=== PATIENT | female | born 1995 | race Caucasian/White ===

== ENCOUNTER 2022-10-15 14:27 | Outpatient (CLI) | payer BC ==
[2022-10-15 15:34] VITALS: BP 126/64; PULSE 100; RESP 18; TEMP 97.7
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
== END 2022-10-15 15:24 | disposition home or self-care (01) ==
LOC: FBPOP 14:27
PROVIDERS: ATTEND Obstetrics & Gynecology
DX: O9A.212 Injury, poisoning and certain other consequences of external causes complicating pregnancy, second trimester (principal); Z3A.26 26 weeks gestation of pregnancy
CPT/HCPCS: 99213

== ENCOUNTER 2023-01-10 07:08 | Outpatient (CLI) | payer BC, OTHER ==
[2023-01-10 07:51] VITALS: BP 115/69; PULSE 80; RESP 15; TEMP 97.6
--- NOTE | 2023-01-15 18:07 | P.MSEPDOC ---
Presenting Problems - Arrival Data Date of Arrival on Unit: 01/10/23 Time of Arrival on Unit: 07:08 Mode of Transport: Ambulatory - Complaint OB-Reason for Admission/Chief Complaint: Rule Out SROM Medical History - Information : 1 Para: 0 Term: 0 : 0 Abortions: Spontaneous or Elective: 0 Number of Living Children: 0 - Gestational Age Gestational Age by WYATT (wks/days): 39 Weeks and 2 Days Review of Systems - Review of Systems Constitutional: No problems Breast: No problems ENT: No problems Cardiovascular: No problems Respiratory: No problems Gastrointestinal: No problems Genitourinary: No problems Musculoskeletal: No problems Neurological: No problems Skin: No problems Vital Signs - Temperature Temperature: 97.6 F Temperature Source: Temporal Artery Scan - Pulse Right Pulse Rate: 80 Pulse Assessment Method: Automatic Cuff - Respirations Respiratory Rate: 15 Oxygen Delivery Method: Room Air O2 Sat by Pulse Oximetry: 97 - Blood Pressure Right Arm Sitting Blood Pressure: 115/69 Blood Pressure Mean: 84 Blood Pressure Source: Automatic Cuff Medical Screen Scoring - Cervical Exam Dilation (cm): 1 Effacement (%): 0 Station: -3 Membranes: Intact - Uterine Contractions Frequency From (mins): 3 Frequency To (mins): 5 Duration From (seconds): 60 Duration To (seconds): 70 Intensity: Mild Resting: Soft to palpation - Assessment - Baby A Baseline FHR: 130 Heart Rate - NICHD Category: Category I (Normal) NST: Reactive Physician Notification - Physician Notified Physician Notified Date: 01/10/23 Physician Notified Time: 07:42 Physician: Cally Gold New Order Received: Yes - Notification Comment Comment: d/c with instruction Maternal Triage Index - Non-Urgent/Priority 4 Non-Urgent Priority 4: Yes Criteria Met for Priority 4: 39.2 rule out rupture Disposition - Disposition OB Disposition: Triage, Discharge to home Discharge Date: 01/10/23 Discharge Time: 07:50 I agree with the RN Medical Screening Exam: Yes Case reviewed; plan agreed upon as documented in EMR&OBIX.: Yes Diagnosis: FALSE LABOR AT OR AFTER 37 COMPLETED WEEKS OF GESTATION
== END 2023-01-10 07:55 | disposition home or self-care (01) ==
LOC: FBPOP 07:08
PROVIDERS: ATTEND Obstetrics & Gynecology Obstetrics
DX: O47.1 False labor at or after 37 completed weeks of gestation (principal); Z3A.39 39 weeks gestation of pregnancy; Z79.82 Long term (current) use of aspirin
CPT/HCPCS: 59025; 84112; 99213

== ENCOUNTER 2023-01-12 00:54 | Inpatient (IN) | payer OTHER ==
[2023-01-12] MEDS ORDERED: LIDOCAINE 0.5% (PF) 5 MG/ML (50 ML SDV) SQ PRN (01:30)
[2023-01-12] MEDS ORDERED: OXYTOCIN 10 UNIT/ML 1 ML VIAL IM PRN (01:30)
[2023-01-12] MEDS ORDERED: miSOPROStoL 200 MCG TAB PO PRN (01:30)
[2023-01-12] MEDS ORDERED: METHYLERGONOVINE 0.2 MG/ML 1 ML AMP IM PRN (01:30)
[2023-01-12] MEDS ORDERED: TRANEXAMIC ACID IN NACL,ISO-OS 1,000 MG in EMPTY BAG 1 BAG IV PRN (01:30)
[2023-01-12] MEDS ORDERED: TERBUTALINE 1 MG/ML VIAL SQ PRN (01:30)
[2023-01-12] MEDS ORDERED: CARBOPROST TROMETHAMINE 250 MCG/ML 1 ML AMP IM PRN (01:30)
[2023-01-12 02:42] VITALS: RESP 16
[2023-01-12] MEDS: OXYTOCIN 30 UNITS/500 ML NS 30 UNIT in SALINE 1 500ML.BAG IV SCH ×2 (02:52→20:35)
[2023-01-12] MEDS: LACTATED RINGERS 1,000 ML IV SCH ×5 (02:53→20:35)
[2023-01-12 03:07] LABS: Basophils % (A) 0 %; Eosinophils # (A) 0.1 k/uL (0-0.7); Eosinophils % (A) 1 %; HGB 12.6 gm/dL (11.4-16.0); Lymphocytes # (A) 1.4 k/uL (1.0-4.8); Lymphocytes % (A) 15 %; MCH 30.9 pg (25.0-35.0); MCHC 33.2 g/dL (31.0-37.0); MCV 92.9 fL (80.0-100.0); Mean Platelet Volume 9.6; Monocytes # (A) 0.4 k/uL (0-1.0); Monocytes % (A) 5 %; Neutrophils # (A) 6.9 k/uL (1.3-7.7); Neutrophils % (A) 78 %; Platelet Count 229 k/uL (150-450); RBC 4.09 m/uL (3.80-5.40); RDW 11.9 % (11.5-15.5); WBC 8.8 k/uL (3.8-10.6)
--- NOTE | 2023-01-12 07:04 | P.HPOB ---
History of Present Illness H&P Date: 01/12/23 Chief Complaint: rupture of membranes Ms. Prince is a 27 year old at 39 weeks and 4 days (with EDC of 01/15/23 by LMP c/w 8 wk US) who presents to labor and delivery with contractions and suspected leakage of amniotic fluid. Due to a maternal history of PFO, the patient was seen by MFM. Maternal and ECHOs done during the were within normal limits. No special recommendations were made for delivery. has otherwise been uncomplicated. Maternal serologies: blood type A positive, antibody negative, rubella immune, VDRL non-reactive, HBsAg negative, HIV negative, 1 hour GTT 121, Group B strep negative Past Medical History Past Medical History: No Reported History Additional Past Medical History / Comment(s): PFO History of Any Multi-Drug Resistant Organisms: None Reported Past Surgical History: No Surgical Hx Reported Past Anesthesia/Blood Transfusion Reactions: No Reported Reaction Past Psychological History: Anxiety Smoking Status: Never smoker Past Alcohol Use History: None Reported Past Drug Use History: None Reported Medications and Allergies Home Medications Medication Instructions Recorded Confirmed Type Aspirin [Adult Low Dose Aspirin EC] 81 mg PO DAILY 10/15/22 01/12/23 History Vit No.179/Iron/Folic 1 each PO DAILY 10/15/22 01/12/23 History [ Tablet] Allergies Allergy/AdvReac Type Severity Reaction Status Date / Time No Known Allergies Allergy Verified 01/12/23 01:28 Exam Vital Signs Temp Pulse Resp BP Pulse Ox 01/12/23 04:31 97.8 F 93 16 114/68 97 01/12/23 01:28 97.8 F 93 16 114/68 97 Intake and Output 01/11/23 01/11/23 01/12/23 14:59 22:59 06:59 Other: # Voids 2 Weight 74.843 kg Focused physical exam is performed. This is a healthy-appearing breathing through contractions. Cervical exam is 2/80/-2. heart tones are Category I. Results Result Diagrams: 01/12/23 02:10 Assessment and Plan Assessment: 27 year old at 39 weeks and 4 days with SROM in early labor Plan: Admit, NPO, mIVF, oxytocin per protocol, continuous EFM, epidural prn. Time with Patient: Less than 30 (10 minutes)
--- NOTE | 2023-01-12 19:26 | P.PROBDLV ---
Vaginal Delivery Note - . Vaginal Delivery Note: DATE OF SERVICE: 01/12/2023 PROCEDURE: Normal Vaginal Delivery ATTENDING: Dr. Layne Martinez MD ESTIMATED BLOOD LOSS: 500 mL FINDINGS: VFI, Apgars 8/9, weight 7# 9 oz PROCEDURE: Patient was a 27 y/o at 39 weeks and 4 day who presented to labor and delivery after spontaneous rupture of membranes at 1999 on 01/11. Oxytocin was started to augment labor. The patient progressed to complete dilation. She pushed the head effectively. Head delivered without difficulty followed by shoulders and body over intact perineum. placed on maternal abdomen and bulb suctioned. Cord was clamped and cut after a 30 second delay. Umbilical cord avulsed fromt the placenta.Placenta extracted manually. Oxytocin was started to facilitate uterine tone. Uterine fundus was atonic on exam and bleeding was brisk. Decision was made to give 0.2 of IM Methergine. After this, the uterine fundus became very firm and bleeding was minimal. Perineal inspection revealed a first degree laceration repaired with 3-0 Vicryl in a running fashion. Bladder drained after repair for approximately 50 cc of urine. Patient stable .
[2023-01-12] MEDS ORDERED: diphenhydrAMINE 50 MG/ML 1 ML VIAL IVP PRN ×2 (20:13)
[2023-01-12] MEDS ORDERED: ZOLPIDEM 5 MG TAB PO PRN (20:13)
[2023-01-12] MEDS ORDERED: BENZOCAINE/MENTHOL SPRAY 1 GM/SPRAY AEROSOL TOPICAL PRN (20:13)
[2023-01-12] MEDS ORDERED: SIMETHICONE 80 MG CHEWABLE PO PRN (20:13)
[2023-01-12] MEDS ORDERED: diphenhydrAMINE 25 MG CAP PO PRN (20:13)
[2023-01-12] MEDS ORDERED: HYDROCORTISONE 2.5% RECTAL CREAM 30 GM TUBE RECTAL PRN (20:13)
[2023-01-12] MEDS ORDERED: diphenhydrAMINE 50 MG CAP PO PRN (20:13)
[2023-01-12] MEDS ORDERED: LANOLIN CREAM 5 GM TUBE TOPICAL PRN (20:13)
[2023-01-12] MEDS: IBUPROFEN 600 MG TAB PO PRN (20:36)
[2023-01-12] MEDS: ACETAMINOPHEN TAB 325 MG TAB PO PRN (23:35)
[2023-01-13] MEDS: IBUPROFEN 600 MG TAB PO PRN (03:22)
[2023-01-13] MEDS: ACETAMINOPHEN TAB 325 MG TAB PO PRN (06:45)
[2023-01-13] MEDS: SENNOSIDES-DOCUSATE SODIUM 1 EACH TAB PO SCH ×2 (08:24→21:25)
[2023-01-13 09:04] LABS: Basophils % (A) 0 %; Eosinophils % (A) 0 %; HCT 32.8 % (34.0-46.0); Lymphocytes # (A) 1.1 k/uL (1.0-4.8); Lymphocytes % (A) 8 %; MCH 31.6 pg (25.0-35.0); MCHC 33.6 g/dL (31.0-37.0); MCV 94.1 fL (80.0-100.0); Mean Platelet Volume 10.4; Monocytes # (A) 0.4 k/uL (0-1.0); Monocytes % (A) 3 %; Neutrophils # (A) 12.2 k/uL (1.3-7.7); Neutrophils % (A) 89 %; Platelet Count 185 k/uL (150-450); RBC 3.49 m/uL (3.80-5.40); RDW 12.5 % (11.5-15.5); WBC 13.8 k/uL (3.8-10.6)
--- NOTE | 2023-01-13 10:46 | P.DS ---
Providers Date of admission: 01/12/23 01:20 Expected date of discharge: 01/13/23 Attending physician: Fallon Moreno Primary care physician: Stated None Hospital Course: This is a 27 year old now who is day #1 s/p normal vaginal delivery after presenting to L&D for spontaneous rupture of membranes in early labor on 01/11. She was augmented with oxytocin, progressed to complete dilation, and pushed the head effectively resulting in the of a viable female infant. The patient is doing well this morning and had no acute events overnight. She has no complaints this morning. She reports minimal lochia, pass ing flatus, voiding without difficulty, ambulating, and eating/drinking without nausea or vomiting. She is breast-feeding her infant without difficulty. She denies chest pain, shortness of breathing, fevers, or chills overnight. She denies pain or swelling in the legs. She desires discharge home today. I recommend pelvic rest for 6 weeks. I encouraged the patient to call the office for heavy bleeding, foul-smelling discharge, breast complaints, or any other concerns. She will follow up with Dr. Moreno in 6 weeks for appointment. Assessment: 27 year old now day #1 s/p normal vaginal delivery Patient Condition at Discharge: Good Plan - Discharge Summary Discharge Rx Participant: No New Discharge Prescriptions: No Action Vit No.179/Iron/Folic [ Tablet] 1 each PO DAILY Aspirin [Adult Low Dose Aspirin EC] 81 mg PO DAILY Discharge Medication List Aspirin [Adult Low Dose Aspirin EC] 81 mg PO DAILY 10/15/22 [History] Vit No.179/Iron/Folic [ Tablet] 1 each PO DAILY 10/15/22 [H istory] Follow up Appointment(s)/Referral(s): Fallon Moreno MD [STAFF PHYSICIAN] - 6 Weeks ( appointment) Patient Instructions/Handouts: Your Baby (DC), How to Tell if Your Baby is Getting Enough Breast Milk (DC), How to Increase Your Milk Supply (DC), Depression (DC), Perineal Care (DC), Bleeding (DC) Discharge Disposition: HOME SELF-CARE
[2023-01-13 19:48] VITALS: BP 102/67; PULSE 74; TEMP 98.1
== END 2023-01-13 21:15 | disposition home or self-care (01) | DRG 805 ==
LOC: FBPOP 00:54 → 4FBP 01:20
PROVIDERS: ADMIT Obstetrics & Gynecology; ATTEND Obstetrics & Gynecology
PROC: 10E0XZZ Delivery of Products of Conception, External Approach (ICD-10-PCS; principal; 2023-01-12)
PROC: 0HQ9XZZ Repair Perineum Skin, External Approach (ICD-10-PCS; 2023-01-12)
PROC: 3E033VJ Introduction of Other Hormone into Peripheral Vein, Percutaneous Approach (ICD-10-PCS; 2023-01-12)
DX: O42.92 Full-term premature rupture of membranes, unspecified as to length of time between rupture and onset of labor (principal); O99.42 Diseases of the circulatory system complicating childbirth; Z37.0 Single live birth; Q21.12 Patent foramen ovale; O70.0 First degree perineal laceration during delivery; O99.344 Other mental disorders complicating childbirth; F41.9 Anxiety disorder, unspecified; Z3A.39 39 weeks gestation of pregnancy
CPT/HCPCS: 59025; 84112; 85025; 86850; 86900; 86901; 99213

== ENCOUNTER 2024-07-28 03:51 | Outpatient (CLI) | payer OTHER ==
[2024-07-28 06:54] VITALS: BP 111/73; PULSE 106; RESP 15; TEMP 96.4
--- NOTE | 2024-08-08 10:07 | P.MSEPDOC ---
Presenting Problems - Arrival Data Date of Arrival on Unit: 07/28/24 Time of Arrival on Unit: 03:51 Mode of Transport: Ambulatory - Complaint OB-Reason for Admission/Chief Complaint: Possible Onset of Labor Comment: PT presents to triage with c/o cx starting at 0130 this morning and rates pain 8/10 Medical History - Information : 2 Para: 1 Term: 1 : 0 Abortions: Spontaneous or Elective: 0 Number of Living Children: 0 - Gestational Age Gestational Age by WYATT (wks/days): 39 Weeks and 2 Days Review of Systems - Review of Systems Constitutional: No problems Breast: No problems ENT: No problems Cardiovascular: No problems Respiratory: No problems Gastrointestinal: No problems Genitourinary: No problems Musculoskeletal: No problems Neurological: No problems Skin: No problems Vital Signs - Temperature Temperature: 96.4 F Temperature Source: Temporal Artery Scan - Pulse Pulse Oximetery Pulse Rate: 106 Pulse Assessment Method: Pulse Oximetry - Respirations Respiratory Rate: 15 Oxygen Delivery Method: Room Air O2 Sat by Pulse Oximetry: 99 - Blood Pressure Right Arm Blood Pressure: 111/73 Blood Pressure Mean: 85 Blood Pressure Source: Automatic Cuff Medical Screen Scoring - Cervical Exam Dilation (cm): 3 Effacement (%): 50 Station: -3 Membranes: Intact - Uterine Contractions Frequency From (mins): 2 Frequency To (mins): 3 Duration From (seconds): 40 Duration To (seconds): 670 Intensity: Moderate Resting: Soft to palpation - Assessment - Baby A Baseline FHR: 130 Heart Rate - NICHD Category: Category I (Normal) NST: Reactive Physician Notification - Physician Notified Physician Notified Date: 07/28/24 Physician Notified Time: 05:15 Physician: Layne Martinez New Order Received: Yes - Notification Comment Comment: RN called Dr. Martinez, Dr. Martinez is aware of HX, FHR, Contractions, patients pain and Cervical exams. Dr. Martinez offered for patient to stay OBV for 23 hours or do a Morphine pain and rest or patient can go home and come back when contractions get more painful. Patient discussed it with significant other and stated she would like to go home Maternal Triage Index - Non-Urgent/Priority 4 Non-Urgent Priority 4: Yes Criteria Met for Priority 4: PT presents to triage with c/o cx starting at 0130 this morning and rates pain 04/25 Disposition - Disposition OB Disposition: Discharge to home Discharge Date: 07/28/24 Discharge Time: 05:28 I agree with the RN Medical Screening Exam: Yes Physician's MSE Comment: I have neither seen nor examined the patient Case reviewed; plan agreed upon as documented in EMR&OBIX.: Yes Diagnosis: FALSE LABOR, UNSPECIFIED
== END 2024-07-28 05:28 | disposition home or self-care (01) ==
LOC: FBPOP 03:51
PROVIDERS: ATTEND Obstetrics & Gynecology
DX: O47.1 False labor at or after 37 completed weeks of gestation (principal); Z3A.39 39 weeks gestation of pregnancy
CPT/HCPCS: 59025; 99213

== ENCOUNTER 2024-07-29 02:24 | Inpatient (IN) | payer OTHER ==
[2024-07-29] MEDS ORDERED: miSOPROStoL 200 MCG TAB PO PRN (02:39)
[2024-07-29] MEDS ORDERED: CARBOPROST TROMETHAMINE 250 MCG/ML 1 ML AMP IM PRN (02:39)
[2024-07-29] MEDS ORDERED: TERBUTALINE 1 MG/ML VIAL SQ PRN (02:39)
[2024-07-29] MEDS ORDERED: miSOPROStoL 200 MCG TAB RECTAL PRN (02:39)
[2024-07-29] MEDS ORDERED: LIDOCAINE 0.5% (PF) 5 MG/ML (50 ML SDV) SQ PRN (02:39)
[2024-07-29] MEDS ORDERED: TRANEXAMIC 1,000 MG/100ML-NACL 1,000 MG in EMPTY BAG 1 BAG IV PRN (02:39)
[2024-07-29] MEDS ORDERED: OXYTOCIN 10 UNIT/ML 1 ML VIAL IM PRN (02:39)
[2024-07-29] MEDS: LACTATED RINGERS 1,000 ML IV SCH (03:00)
[2024-07-29] MEDS: AMPICILLIN 2,000 MG in SODIUM CHLORIDE 0.9% 100 ML IVPB STA (03:10)
[2024-07-29 03:27] LABS: Basophils % (A) 0 %; Eosinophils # (A) 0.1 k/uL (0-0.7); Eosinophils % (A) 1 %; HCT 38.7 % (34.0-46.0); HGB 12.8 gm/dL (11.4-16.0); Lymphocytes # (A) 1.3 k/uL (1.0-4.8); Lymphocytes % (A) 14 %; MCH 31.9 pg (25.0-35.0); MCHC 33.1 g/dL (31.0-37.0); MCV 96.2 fL (80.0-100.0); Mean Platelet Volume 9.6; Monocytes # (A) 0.4 k/uL (0-1.0); Monocytes % (A) 4 %; Neutrophils # (A) 7.8 k/uL (1.3-7.7); Neutrophils % (A) 81 %; Platelet Count 233 k/uL (150-450); RBC 4.02 m/uL (3.80-5.40); RDW 12.5 % (11.5-15.5); WBC 9.6 k/uL (3.8-10.6)
[2024-07-29] MEDS ORDERED: fentaNYL (PF) 50 MCG/ML 5 ML AMP ONE (04:04)
[2024-07-29] MEDS ORDERED: SODIUM CHLORIDE 0.9% 250 ML BAG ONE (04:04)
[2024-07-29] MEDS ORDERED: ROPIVACAINE 5 MG/ML 30 ML VIAL ONE (04:04)
[2024-07-29] MEDS: AMPICILLIN 1,000 MG in SODIUM CHLORIDE 0.9% 50 ML IVPB SCH (06:41)
--- NOTE | 2024-07-29 07:42 | P.HPOB ---
History of Present Illness H&P Date: 07/29/24 Chief Complaint: SROM 28 year old presents at 39 weeks with spontaneous rupture of membranes. Her cervix is 4/90/-2 and she is kathy irregularly. heart tones category 1. Review of Systems All systems: negative Constitutional: Denies chills, Denies fever Eyes: denies blurred vision, denies pain Ears, nose, mouth and throat: Denies headache, Denies sore throat Cardiovascular: Denies chest pain, Denies shortness of breath Respiratory: Denies cough Gastrointestinal: Denies abdominal pain, Denies diarrhea, Denies nausea, Denies vomiting Genitourinary: Denies dysuria, Denies hematuria Musculoskeletal: Denies myalgias Integumentary: Denies pruritus, Denies rash Neurological: Denies numbness, Denies weakness Psychiatric: Denies anxiety, Denies depression Endocrine: Denies fatigue, Denies weight change Past Medical History Past Medical History: No Reported History Additional Past Medical History / Comment(s): PFO History of Any Multi-Drug Resistant Organisms: None Reported Past Surgical History: No Surgical Hx Reported Past Anesthesia/Blood Transfusion Reactions: No Reported Reaction Past Psychological History: Anxiety Smoking Status: Never smoker Past Alcohol Use History: None Reported Past Drug Use History: None Reported Medications and Allergies Home Medications Medication Instructions Recorded Confirmed Type Aspirin [Adult Low Dose Aspirin EC] 81 mg PO DAILY 10/15/22 07/29/24 History Vit No.179/Iron/Folic 1 each PO DAILY 10/15/22 07/29/24 History [ Tablet] Allergies Allergy/AdvReac Type Severity Reaction Status Date / Time No Known Allergies Allergy Verified 07/29/24 02:25 Exam Osteopathic Statement: *. No significant issues noted on an osteopathic structural exam other than those noted in the History and Physical/Consult. Vital Signs Temp Pulse Resp BP Pulse Ox 07/29/24 03:25 96.8 F L 95 16 119/73 98 07/29/24 02:44 96.8 F L 95 16 119/79 98 Intake and Output 07/28/24 07/29/24 07/29/24 22:59 06:59 14:59 Intake Total 240 Output Total 100 Balance 140 Intake: Oral 240 Output: Urine 100 Other: Weight 77.111 kg Heart: Regular rate and rhythm Lungs: Clear to auscultation bilaterally Abdomen: Soft, nontender Extremities: Negative Homans sign Results Result Diagrams: 07/29/24 03:04 Abnormal Lab Results - Last 24 Hours (Table) 07/29/24 Range/Units 03:04 Neutrophils # 7.8 H (1.3-7.7) k/uL Assessment and Plan (1) SROM (spontaneous rupture of membranes) Current Visit: Yes Status: Acute Code(s): [id number] - SNOMED Code(s): 156128918 (2) 39 weeks gestation of Current Visit: Yes Status: Acute Code(s): Z3A.39 - 39 WEEKS GESTATION OF SNOMED Code(s): 27127005 Plan: 1. expectant management 2. Anticipate normal vaginal delivery
[2024-07-29] MEDS: OXYTOCIN 30 UNITS/500 ML NS 30 UNIT in SALINE 1 500ML.BAG IV SCH (09:35)
[2024-07-29] MEDS: METHYLERGONOVINE 0.2 MG/ML 1 ML AMP IM PRN (15:38)
[2024-07-29] MEDS ORDERED: diphenhydrAMINE 25 MG CAP PO PRN (15:55)
[2024-07-29] MEDS ORDERED: diphenhydrAMINE 50 MG/ML 1 ML VIAL IVP PRN ×2 (15:55)
[2024-07-29] MEDS ORDERED: HYDROCORTISONE 2.5% RECTAL CREAM 30 GM TUBE RECTAL PRN (15:55)
[2024-07-29] MEDS ORDERED: ZOLPIDEM 5 MG TAB PO PRN (15:55)
[2024-07-29] MEDS ORDERED: SIMETHICONE 80 MG CHEWABLE PO PRN (15:55)
[2024-07-29] MEDS ORDERED: BENZOCAINE/MENTHOL SPRAY 1 GM/SPRAY AEROSOL TOPICAL PRN (15:55)
[2024-07-29] MEDS ORDERED: LANOLIN CREAM 1 GM TUBE TOPICAL PRN (15:55)
[2024-07-29] MEDS ORDERED: diphenhydrAMINE 50 MG CAP PO PRN (15:55)
--- NOTE | 2024-07-29 17:15 | P.PROBDLV ---
Vaginal Delivery Note - . Vaginal Delivery Note: 28 year old presents at 39 weeks with spontaneous rupture of membranes. Her cervix is 4/90/-2 and she is kathy irregularly. heart tones category 1. After a few hours Pitocin augmentation was started. When patient was very uncomfortable she did get an epidural. Her cervix was completely dilated at 1418. She labored down a little bit then pushed and delivered a viable male over intact perineum under epidural anesthesia at 1518. Head delivered OA, anterior shoulder delivered gentle downward guidance for by posterior shoulder and rest of body. Nose mouth bulb suctioned, cord clamped and cut, infant placed mother's abdomen. Apgars 9, 9, weight pending. Placenta delivered spontaneously, intact with three-vessel cord at 1521. Vagina, cervix, perineum inspected. No lacerations noted. Estimated blood loss 250 mL. Mother and baby in stable condition.
[2024-07-29 18:35] VITALS: RESP 16
[2024-07-29] MEDS: SENNOSIDES-DOCUSATE SODIUM 1 EACH TAB PO SCH (20:12)
[2024-07-29] MEDS: ACETAMINOPHEN TAB 500 MG TAB PO PRN (20:45)
[2024-07-30 07:48] LABS: Basophils % (A) 0 %; Eosinophils # (A) 0.1 k/uL (0-0.7); Eosinophils % (A) 1 %; Lymphocytes # (A) 1.1 k/uL (1.0-4.8); Lymphocytes % (A) 10 %; MCH 32.8 pg (25.0-35.0); MCV 96.6 fL (80.0-100.0); Mean Platelet Volume 9.1; Monocytes # (A) 0.4 k/uL (0-1.0); Monocytes % (A) 4 %; Neutrophils # (A) 9.7 k/uL (1.3-7.7); Neutrophils % (A) 85 %; Platelet Count 185 k/uL (150-450); RDW 12.5 % (11.5-15.5); WBC 11.4 k/uL (3.8-10.6)
[2024-07-30 07:49] LABS: HGB 9.9 gm/dL (11.4-16.0)
--- NOTE | 2024-07-30 08:27 | P.DS ---
Providers Date of admission: 07/29/24 02:42 Expected date of discharge: 07/30/24 Attending physician: Fallon Moreno Primary care physician: Stated None - Discharge Diagnosis(es) (1) 39 weeks gestation of Current Visit: Yes Status: Acute (2) SROM (spontaneous rupture of membranes) Current Visit: Yes Status: Acute (3) GBS (group B Streptococcus carrier), +RV culture, currently Current Visit: Yes Status: Acute (4) Normal spontaneous vaginal delivery Current Visit: Yes Status: Acute Hospital Course: 28-year-old 2 now para 2 woman who presented at 39+ weeks gestation with spontaneous rupture of membranes in early labor. Following admission she received group B strep prophylactic antibiotics per protocol. She eventually received an epidural anesthetic and Pitocin augmentation of labor. She went on to have an uncomplicated delivery of a liveborn male infant over an intact perineum with Apgars of 9 at 1 minute and 9 at 5 minutes weighing 9 lbs. 3 oz. Her course was unremarkable. By day #1 she was ambulating and voiding without difficulty. Her lochia was decreasing and her vital signs were stable. She was breast-feeding successfully. She was therefore discharged home with routine instructions for care and follow-up. Patient Condition at Discharge: Good Plan - Discharge Summary New Discharge Prescriptions: No Action Vit No.179/Iron/Folic [ Tablet] 1 each PO DAILY Aspirin [Adult Low Dose Aspirin EC] 81 mg PO DAILY Discharge Medication List Aspirin [Adult Low Dose Aspirin EC] 81 mg PO DAILY 10/15/22 [History] Vit No.179/Iron/Folic [ Tablet] 1 each PO DAILY 10/15/22 [History] Follow up Appointment(s)/Referral(s): Fallon Moreno MD [STAFF PHYSICIAN] - 09/14/24 3:30 pm Activity/Diet/Wound Care/Special Instructions: Follow-up in the office in 6 weeks . Call with any concerning signs or symptoms including heavy vaginal bleeding, severe abdominal pain, fever greater than 101, swelling or redness of the lower extremities, foul vaginal discharge, or signs of depression. Nothing in the vagina for 6 weeks after delivery, specifically no intercourse. Discharge Disposition: HOME SELF-CARE
[2024-07-30] MEDS: IBUPROFEN 800 MG TAB PO PRN (08:44)
[2024-07-30 12:05] VITALS: BP 99/67; PULSE 79; TEMP 98
== END 2024-07-30 16:14 | disposition home or self-care (01) | DRG 807 ==
LOC: FBPOP 02:24 → 4FBP 02:42
PROVIDERS: ADMIT Obstetrics & Gynecology Obstetrics; ATTEND Obstetrics & Gynecology
PROC: 10E0XZZ Delivery of Products of Conception, External Approach (ICD-10-PCS; principal; 2024-07-29)
DX: O99.824 Streptococcus B carrier state complicating childbirth (principal); Z37.0 Single live birth; Z3A.39 39 weeks gestation of pregnancy; Z79.82 Long term (current) use of aspirin
CPT/HCPCS: 59025; 84112; 85025; 86850; 86900; 86901; 99213